=== PATIENT | female | born 1995 | race Caucasian/White ===

== ENCOUNTER 2016-09-03 16:24 | Inpatient (IN) | payer OTHER ==
[2016-09-03] MEDS ORDERED: DIPHTH/TETANUS/ACEL PERTUSSIS (BOOSTER) 0.5 ML VIAL/PFS IM ONE (16:28)
[2016-09-03] MEDS ORDERED: ceFAZolin 2 GM PREMIX 50 ML ONE (16:28)
[2016-09-03] MEDS ORDERED: ONDANSETRON HCL 4 MG/2 ML VIAL ONE (16:35)
[2016-09-03] MEDS ORDERED: MORPHINE SULFATE 8 MG/ML INJ ONE ×2 (16:35→17:05)
[2016-09-03 16:41] VITALS: O2SAT 100
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
[2016-09-03 16:50] LABS: I-STAT POTASSIUM 3.4 MMOL/L (3.5-4.9)
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
[2016-09-03 16:52] LABS: AUTOMATED NEUTROPHIL # 2.3 TH/MM3 (1.8-7.7); BASOPHIL # 0.1 TH/MM3 (0-0.2); BASOPHIL % 1.3 % (0.0-2.0); EOSINOPHIL # 0.3 TH/MM3 (0-0.4); EOSINOPHIL % 5.3 % (0.0-4.0); HEMATOCRIT 28.7 % (35.0-46.0); HEMO FLAGS DIFF FINAL; LYMPH % 39.6 % (9.0-44.0); LYMPHOCYTE # 2.1 TH/MM3 (1.0-4.8); MEAN CELL VOLUME 70.6 FL (80.0-100.0); MEAN CORPUSCULAR HEMOGLOBIN 22.4 PG (27.0-34.0); MEAN CORPUSCULAR HGB CONC 31.8 % (32.0-36.0); MONO % 10.2 % (0.0-8.0); NEUT % 43.6 % (16.0-70.0); PLATELET COUNT 237 TH/MM3 (150-450); RED BLOOD COUNT 4.06 MIL/MM3 (4.00-5.30); RED CELL DISTRIBUTION WIDTH 16.6 % (11.6-17.2); WHITE BLOOD COUNT 5.3 TH/MM3 (4.0-11.0)
[2016-09-03] MEDS ORDERED: IOHEXOL 350 MG/ML 10 ML VIAL (for RAD DIAG) IV ONE (16:58)
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
[2016-09-03 17:01] LABS: APTT (PATIENT) 23.5 SEC (24.3-30.1); PROTHROMBIN TIME - PATIENT 11.1 SEC (9.8-11.6)
[2016-09-03 17:06] VITALS: BP 112/66; PULSE 90; RESP 15; O2SAT 100
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
[2016-09-03] MEDS ORDERED: LIDOCAINE 1%/EPINEPHrine 1:100,000 SOLN 20 ML VIAL ONE ×2 (17:07→17:09)
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
[2016-09-03] MEDS ORDERED: LIDOCAINE 1%/EPINEPHrine 1:100,000 SOLN 20 ML VIAL INFIL ONE (17:15)
[2016-09-03] MEDS ORDERED: LACTATED RINGER'S 1000 ML INJ 1,000 ML IV ONE (17:30)
[2016-09-03] MEDS ORDERED: ACETAMINOPHEN/HYDROcodone 325 MG/5 MG TAB PO PRN (17:30)
[2016-09-03] MEDS ORDERED: MAGNESIUM HYDROXIDE SUSP 30 ML CUP PO PRN (17:30)
[2016-09-03] MEDS ORDERED: SODIUM CHLORIDE 0.9% FLUSH 10 ML FLUSH IV FLUSH PRN (17:30)
[2016-09-03] MEDS ORDERED: CHLORHEXIDINE GLUCONATE 2 % 1 PACK (2 CLOTHS) TOP PRN (17:30)
[2016-09-03] MEDS ORDERED: ENALAPRILAT 1.25 MG/ML VIAL IV PRN (17:30)
[2016-09-03] MEDS ORDERED: ONDANSETRON HCL 4 MG/2 ML VIAL IV PRN (17:30)
[2016-09-03] MEDS ORDERED: MISCELLANEOUS NURSING INFORMATION XX SCH (17:30)
[2016-09-03 18:20] VITALS: BP 110/60; PULSE 92; RESP 15; O2SAT 100
[2016-09-03] MEDS: MORPHINE SULFATE 4 MG/ML INJ IV PRN ×2 (18:26→21:42)
[2016-09-03 20:00] VITALS: BP 110/58; PULSE 76; RESP 18; TEMP 97.3; O2SAT 100
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
[2016-09-03] MEDS ORDERED: DOCU1CAP39 PO (20:24)
[2016-09-03] MEDS ORDERED: MAGN400S PO (20:24)
[2016-09-03] MEDS: DOCUSATE SODIUM 100 MG CAP PO SCH (20:36)
[2016-09-03] MEDS: BACITRACIN TOP OINT 15 GM TUBE TOP SCH (20:37)
[2016-09-03] MEDS: ACETAMINOPHEN/HYDROcodone 325 MG/5 MG TAB PO PRN (20:37)
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
[2016-09-04] VITALS: BP 122/65; PULSE 79; RESP 20; TEMP 97.8; O2SAT 100
[2016-09-04] MEDS: ACETAMINOPHEN/HYDROcodone 325 MG/5 MG TAB PO PRN ×4 (00:48→15:01)
[2016-09-04] MEDS ORDERED: CHLORHEXIDINE GLUCONATE 2 % 1 PACK (2 CLOTHS) TOP SCH (04:00)
[2016-09-04 06:09] VITALS: BP 111/55; PULSE 65; RESP 18; TEMP 97.1; O2SAT 100
[2016-09-04 07:35] LABS: BICARBONATE 28.8 MEQ/L (21.0-32.0); POTASSIUM 3.6 MEQ/L (3.5-5.1)
[2016-09-04 07:42] LABS: AUTOMATED NEUTROPHIL # 4.1 TH/MM3 (1.8-7.7); BASOPHIL # 0.1 TH/MM3 (0-0.2); BASOPHIL % 0.8 % (0.0-2.0); EOSINOPHIL # 0.5 TH/MM3 (0-0.4); HEMATOCRIT 26.5 % (35.0-46.0); HEMO FLAGS DIFF FINAL; LYMPH % 25.1 % (9.0-44.0); LYMPHOCYTE # 1.9 TH/MM3 (1.0-4.8); MEAN CELL VOLUME 72.4 FL (80.0-100.0); MEAN CORPUSCULAR HEMOGLOBIN 22.4 PG (27.0-34.0); MEAN CORPUSCULAR HGB CONC 30.9 % (32.0-36.0); MONO % 11.4 % (0.0-8.0); NEUT % 55.7 % (16.0-70.0); PLATELET COUNT 210 TH/MM3 (150-450); RED BLOOD COUNT 3.66 MIL/MM3 (4.00-5.30); RED CELL DISTRIBUTION WIDTH 16.2 % (11.6-17.2); WHITE BLOOD COUNT 7.4 TH/MM3 (4.0-11.0)
[2016-09-04] MEDS: MORPHINE SULFATE 4 MG/ML INJ IV PRN ×2 (07:56→16:11)
[2016-09-04] MEDS: DOCUSATE SODIUM 100 MG CAP PO SCH (07:57)
[2016-09-04] MEDS: BACITRACIN TOP OINT 15 GM TUBE TOP SCH (07:57)
[2016-09-04 08:19] VITALS: BP 95/52; PULSE 71; RESP 18; TEMP 97.1; O2SAT 100
[2016-09-04] MEDS ORDERED: ROBA500T PO (11:13)
[2016-09-04] MEDS ORDERED: NORC5TAB PO (11:13)
--- NOTE | 2016-09-04 11:41 | HHI.PR ---
Subjective Subjective Notes PTD: 1 Objective Vitals/I&O Vital Signs Date Time Temp Pulse Resp B/P Pulse Ox O2 Delivery O2 Flow Rate FiO2 09/04/16 08:19 97.1 71 18 95/52 100 09/03/16 18:20 Nasal Cannula 2 Labs Laboratory Tests Test 09/03/16 09/04/16 16:30 05:59 White Blood Count 5.3 7.4 Red Blood Count 4.06 3.66 Hemoglobin 9.1 8.2 Bedside Hemoglobin 10.5 Hematocrit 28.7 26.5 Bedside Hematocrit 31.0 Mean Corpuscular Volume 70.6 72.4 Mean Corpuscular Hemoglobin 22.4 22.4 Mean Corpuscular Hemoglobin 31.8 30.9 Concent Red Cell Distribution Width 16.6 16.2 Platelet Count 237 210 Mean Platelet Volume 8.6 8.8 Neutrophils (%) (Auto) 43.6 55.7 Lymphocytes (%) (Auto) 39.6 25.1 Monocytes (%) (Auto) 10.2 11.4 Eosinophils (%) (Auto) 5.3 7.0 Basophils (%) (Auto) 1.3 0.8 Neutrophils # (Auto) 2.3 4.1 Lymphocytes # (Auto) 2.1 1.9 Monocytes # (Auto) 0.5 0.8 Eosinophils # (Auto) 0.3 0.5 Basophils # (Auto) 0.1 0.1 CBC Comment DIFF FINAL DIFF FINAL Differential Comment Prothrombin Time 11.1 Prothromb Time International 1.0 Ratio Activated Partial 23.5 Thromboplast Time Bedside Sodium 140 Bedside Potassium 3.4 Bedside Chloride 102 Bedside Blood Urea Nitrogen 9 Bedside Creatinine 0.6 Bedside Glucose 124 Blood Type A NEGATIVE Antibody Screen NEGATIVE Sodium Level 141 Potassium Level 3.6 Chloride Level 106 Carbon Dioxide Level 28.8 Anion Gap 6 Blood Urea Nitrogen 5 Creatinine 0.66 Estimat Glomerular Filtration 114 Rate Random Glucose 109 Calcium Level 8.3 Radiology Last Impressions Pelvis X-Ray 09/03/161627 Signed Impressions: Service Date/Time: Saturday, September 03, 2016 16:19 - CONCLUSION: The bony structures appear to be grossly intact. A CT scan will be performed for further evaluation. Josef Lo MD Head CT 09/03/161627 Signed Impressions: Service Date/Time: Saturday, September 03, 2016 16:42 - CONCLUSION: No acute intracranial hemorrhage. Josef Lo MD Chest X-Ray 09/03/16 1628 Signed Impressions: Service Date/Time: Saturday, September 03, 2016 16:19 - CONCLUSION: The lungs are grossly clear. A CT thorax will be performed for further evaluation. Josef Lo MD Chest CT 09/03/16 1628 Signed Impressions: Service Date/Time: Saturday, September 03, 2016 16:46 - CONCLUSION: No acute intrathoracic disease. Josef Lo MD Cervical Spine CT 09/03/161627 Signed Impressions: Service Date/Time: Saturday, September 03, 2016 16:46 - CONCLUSION: Normal examination for a patient of this age. Josef Lo MD Abdomen/Pelvis CT 09/03/161627 Signed Impressions: Service Date/Time: Saturday, September 03, 2016 16:46 - CONCLUSION: Unremarkable CT scan of the abdomen and pelvis. Josef Lo MD Knee X-Ray 09/03/16 0000 Signed Impressions: Service Date/Time: Saturday, September 03, 2016 20:03 - CONCLUSION: Unremarkable limited examination of the left knee. Abel Burnett MD Elbow X-Ray 09/03/16 0000 Signed Impressions: Service Date/Time: Saturday, September 03, 2016 16:19 - CONCLUSION: Normal examination for a patient of this age. Josef Lo MD Cervical Spine MRI 09/03/16 0000 Signed Impressions: Service Date/Time: Saturday, September 03, 2016 19:23 - CONCLUSION: 1. There is some straightening of the normal cervical lordosis. No acute bony findings. No canal stenosis. No discrete disc protrusions. No nerve root compression identified. MD Conchita Qiu Justine F [facility] Sep 04, 2016 11:41
[2016-09-04 12:19] VITALS: BP 102/54; PULSE 78; RESP 18; TEMP 96.9; O2SAT 100
[2016-09-04] MEDS ORDERED: METHOCARBAMOL 500 MG TAB PO SCH (14:00)
--- NOTE | 2016-09-04 14:58 | RADRPT ---
EXAM DATE/TIME: 09/04/2016 14:18 [facility] COMPARISON: ELBOW LEFT LIMITED (AP & LAT), September 03, 2016, 16:19. INDICATIONS : Left elbow pain and swelling. RADIATION DOSE: 11.61 CTDIvol (mGy) MEDICAL HISTORY : None SURGICAL HISTORY : None. ENCOUNTER: Initial ACUITY: 1 day PAIN SCALE: 7/10 LOCATION: Left TECHNIQUE: Volumetric scanning of the elbow was performed. Using automated exposure control and adjustment of t he mA and/or kV according to patient size, radiation dose was kept as low as reasonably achievable to obtain optimal diagnostic quality images. DICOM format image data is available electronically for r eview and comparison. FINDINGS: BONES: No evidence of fracture. Alignment is within normal limits. JOINTS: No evidence of joint narrowing or effusion. SOFT TISSUES: Nonspecific soft tissue swelling is noted in the subcutaneous soft tissues at the level of the elbow joint. No loculated fluid collections are seen. CONCLUSION: 1. No acute bony fracture or joint dislocation. 2. Nonspecific soft tissue swelling in the subcutaneous soft tissues at the elbow joint. Josef Lo MD on September 04, 2016 at 14:54 Board Certified Radiologist. This report was verified electronically.
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
[2016-09-04 16:04] VITALS: BP 114/64; PULSE 84; RESP 18; TEMP 98.1; O2SAT 100
== END 2016-09-04 17:24 | disposition home or self-care (01) | DRG 90 ==
LOC: NEPI 16:24 → NEDA 16:59 → EDBD 16:59 → N05A 20:00
PROVIDERS: ADMIT Surgery; ATTEND Surgery
DX: S06.0X9A Concussion with loss of consciousness of unspecified duration, initial encounter (principal); S16.1XXA Strain of muscle, fascia and tendon at neck level, initial encounter; S01.01XA Laceration without foreign body of scalp, initial encounter; S01.81XA Laceration without foreign body of other part of head, initial encounter; S50.02XA Contusion of left elbow, initial encounter; V43.52XA Car driver injured in collision with other type car in traffic accident, initial encounter; Z72.0 Tobacco use; Y92.410 Unspecified street and highway as the place of occurrence of the external cause
CPT/HCPCS: 12053; 70450; 71010; 71260; 72125; 72141; 72170; 73070; 73200; 73560; 74177; 80048; 82435; 82565; 82947; 84132; 84295; 84520; 85025; 85610; 85730; 86850; 86900; 86901; 90715; 94150; J0690; J2270; J2405; J7120; L0120; Q9967